=== PATIENT | male | born 1975 | race Caucasian/White ===

== ENCOUNTER 2018-06-05 15:05 | Emergency (ER) | payer OTHER ==
[2018-06-05 15:54] VITALS: TEMP 99.4; O2SAT 97
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
[2018-06-05] MEDS ORDERED: cloNIDine HCL 0.1 MG TAB ONE (17:00)
[2018-06-05] MEDS ORDERED: KETOROLAC TROMETHAMINE INJ 60 MG/2 ML VIAL IM ONE ×2 (17:00→17:05)
[2018-06-05] MEDS ORDERED: cloNIDine HCL 0.1 MG TAB PO ONE (17:05)
[2018-06-05 17:21] VITALS: BP 160/113
== END 2018-06-05 17:21 | disposition home or self-care (01) ==
LOC: ER 15:05
DX: S43.402A Unspecified sprain of left shoulder joint, initial encounter (principal); R07.81 Pleurodynia; V86.65XA Passenger of 3- or 4- wheeled all-terrain vehicle (ATV) injured in nontraffic accident, initial encounter
CPT/HCPCS: 71101; 73030; J1885